=== PATIENT | female | born 1995 | race Caucasian/White ===

== ENCOUNTER 2018-11-25 10:40 | Outpatient (CLI) | payer BC ==
--- NOTE | 2018-11-25 11:14 | Non Stress Test Report ---
Non Stress Test Datetime Report Generated by CPN: 11/25/2018 11:13 DEMOGRAPHIC EGA NST: 38.4 INDICATION Indication for Study: Ordered by Provider Indication for Study (NST) Other: nst small for dates VITAL SIGNS Temperature - NST: 98.3 Pulse - NST: 102 RESP - NST: 14 NBPSYS NST: 110 NBPDIA NST: 68 MONITORING Monitor Explained: Monitor Explained; Test Explained; Patient Verbalized Understanding Time on Monitor: 11/25/2018 10:49 Time off Monitor: 11/25/2018 11:12 NST Duration: 23 NST INTERVENTIONS NST Interventions: PO Hydration; Reposition Patient Physician Notified NST: K Mo CNM BABY A: [id number] BABY A Movement : Present Contraction Frequency : irr FHR Baseline : 130 Accelerations : 15X15 Decelerations : None Variability : Moderate 6-25bpm NST Review: Meets Criteria for Reactive NST NST Review and Verified By : Autumn Goodwin RNC NST Results: Reactive NST REPORT Report Trigger: Send Report
== END 2018-11-25 11:19 | disposition home or self-care (01) ==
LOC: LC 10:40
PROVIDERS: ATTEND Obstetrics & Gynecology Gynecology
PROC: 4A1HXCZ Monitoring of Products of Conception, Cardiac Rate, External Approach (ICD-10-PCS; principal; 2018-11-25)
DX: O36.5930 Maternal care for other known or suspected poor fetal growth, third trimester, not applicable or unspecified (principal); Z3A.38 38 weeks gestation of pregnancy
CPT/HCPCS: 59025

== ENCOUNTER 2018-12-02 02:03 | Inpatient (IN) | payer BC ==
[2018-12-02] MEDS ORDERED: DINOPROSTONE 10 MG VAGINAL INSERT.SR ONE (03:04)
[2018-12-02] MEDS ORDERED: DINOPROSTONE 10 MG VAGINAL INSERT.SR PV PRN (03:12)
[2018-12-02] MEDS ORDERED: RINGERS SOLUTION,LACTATED 1,000 ML IV PRN (03:12)
[2018-12-02] MEDS ORDERED: OXYTOCIN/NORMAL SALINE 20 UNIT/1,000 ML RTUINJ IV PRN ×2 (03:12→19:42)
[2018-12-02] MEDS ORDERED: RINGERS SOLUTION,LACTATED 300 ML IV ONE (03:12)
--- NOTE | 2018-12-02 03:42 | Admission Physical ---
Datetime Report Generated by CPN: 12/02/2018 03:41 CURRENT ADMISSION Chief Complaint: Scheduled Induction of Labor Indication for Induction: IUGR Admit Impression : Term, Intrauterine ; No Active Labor; Intact Membranes; Induction of Labor Admit Plan: Admit to Unit; Initiate Labor Induction Protocol ALLERGIES Medication Allergies: No Medication Allergies: No Known Allergies (12/02/2018) Latex: No Latex Allergies OBSTETRICAL HISTORY EDC: 12/05/2018 00:00 : 1 Para: 0 Gestational Diabetes: No Rh Sensitization: No Incompetent Cervix: No DEB: No Infertility: No ART Treatment: No Uterine Anomaly: No IUGR: No Hx Previous C/S: No Macrosomia: No Hx Loss/Stillborn: No PIH: No Hx : No Placenta Previa/Abruption: No Depression/PP Depression: No PTL/PROM: No Post Hemorrhage: No Current Procedures: Ultrasound; NST Obstetrical History Comments: G1- current, IUGR less than 11% SEE RECORDS Alcohol: No Marijuana : No Cocaine: No Other Illicit Drugs: No Cigarettes: Never Smoker. 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 Heart Disease: No Hosp/Surgery: No Autoimmune Disorder: No Anesthetic Complications: No Kidney Disease: No Abnormal Pap Smear: No Neuro/Epilepsy: No Psychiatric Disorders: No Other Medical Diseases: No Hepatitis/Liver Disease: No Significant Family History: No Varicosities/Phlebitis: No Trauma/Violence : No Thyroid Dysfunction: No INFECTIOUS HISTORY Gonorrhea: No Genital Herpes: No Chlamydia: No Tuberculosis: No Syphilis: No Hepatitis: No HIV/AIDS Exposure: No Rash or Viral Illness: No HPV: No PHYSICAL EXAM General: Normal HEENT: Normal Neurologic: Normal Thyroid: Deferred Heart: Normal Lungs: Normal Breast: Deferred Back: Normal Abdomen: Normal Genitourinary Exam: Normal Extremities: Normal DTRs: Normal Pelvic Type: Adequate Vital Signs: Reviewed VAGINAL EXAM Dilatation: 1 Effacement: 25 Station: -3 Contraction Comments: irreg MEMBRANES Membranes: Intact FETUS A EGA: 39.4 Monitoring: External US FHR- Baseline: 135 Variability: Moderate 6-25bpm Accelerations: 15X15 Decelerations: None FHR Category: Category I Estimated Weight (gm): 2813 Presentation: Vertex Admit Comment: 23yo at 39+4ega presents for IOL due to borderline IUGR with EFW decreasing from 18% to 11% from 11/01 to 11/25. Reviewed borderline IUGR with normal S/D ratio and recommendation for delivery b/w 39-40wks with pt at 11/[address] Urena reviewed with her on Labor and delivery same day.GBS negative. IOL with cervidil tonight. Sickel cell trait - Heterozygous. o/w uncomplicated. Anticipate . PLANS FOR LABOR AND DELIVERY Labor and Delivery: Plan Pain Management: Epidural Feeding Preference: Breast Benefit of Breast Feed Discussed: Yes Circumcision: N/A INFORMED CONSENT Informed Consent Obtained: Vaginal Delivery; Induction of Labor; Risks, Benefits and Alternatives Discussed Signature: with User ID: [email or web address]
[2018-12-02 03:48] LABS: ABSOLUTE EOSINOPHILS # (AUTO) 0.1 10^3/uL (0.0-0.6); ABSOLUTE LYMPHOCYTES (AUTO) 2.7 10^3/uL (0.5-4.7); ABSOLUTE MONOCYTES (AUTO) 1.2 10^3/uL (0.1-1.4); ABSOLUTE NEUT (AUTO) 7.4 10^3/uL (1.7-8.2); BASOPHILS % (AUTO) 0.3 % (0-2); EOSINOPHILS % (AUTO) 0.7 % (0-6); HEMATOCRIT 35.2 % (36.0-47.0); HEMOGLOBIN 11.8 g/dL (12.0-15.5); LYMPHOCYTES % (AUTO) 23.6 % (13-45); MEAN CORPUSCULAR HGB CONC 33.4 g/dL (32.0-36.0); MEAN CORPUSCULAR VOLUME 90 fl (80-97); MONOCYTES % (AUTO) 10.8 % (3-13); PLATELET COUNT 247 10^3/uL (150-450); RED BLOOD COUNT 3.92 10^6/uL (3.72-5.28); RED CELL DISTRIBUTION WIDTH 14.3 % (11.5-14.0); SEGMENTED NEUTROPHILS % (AUTO) 64.6 % (42-78); TOTAL CELLS COUNTED % (AUTO) 100 %; WHITE BLOOD COUNT 11.5 10^3/uL (4.0-10.5)
[2018-12-02 04:03] LABS: APPEARANCE,URINE CLEAR; BILIRUBIN,URINE NEGATIVE (NEGATIVE); COLOR,URINE YELLOW; GLUCOSE, URINE NEGATIVE (NEGATIVE); KETONES,URINE NEGATIVE (NEGATIVE); LEUKOCYTE ESTERASE,URINE NEGATIVE (NEGATIVE); NITRITE,URINE NEGATIVE (NEGATIVE); PROTEIN,URINE NEGATIVE (NEGATIVE); URINE SPECIFIC GRAVITY 1.006; UROBILINOGEN,URINE NEGATIVE mg/dL (<2.0)
[2018-12-02 04:18] LABS: URINE AMPHETAMINES SCREEN NEGATIVE; URINE BARBITURATES SCREEN NEGATIVE; URINE BENZODIAZEPINES SCREEN NEGATIVE; URINE COCAINE SCREEN NEGATIVE; URINE MARIJUANA (THC) SCREEN NEGATIVE; URINE METHADONE SCREEN NEGATIVE; URINE PHENCYCLIDINE SCREEN NEGATIVE
[2018-12-02] MEDS ORDERED: EPHEDRINE SULFATE INJ 50 MG/1 ML AMPULE ONE (14:47)
[2018-12-02] MEDS ORDERED: BUPIVACAINE HCL 0.25 % INJ/PF (2.5 MG/1 ML) 30 ML VIAL ONE (14:48)
[2018-12-02] MEDS ORDERED: FENTANYL/BUPIVACAINE/NS/PF 300 MCG/150 ML RTUINJ EPI ONE (14:48)
[2018-12-02] MEDS ORDERED: MISOPROSTOL 0.2 MG TABLET ONE ×2 (18:54→21:51)
[2018-12-02] MEDS ORDERED: OXYTOCIN 10 UNIT/ML VIAL ONE ×2 (18:54→21:51)
[2018-12-02] MEDS ORDERED: OXYTOCIN/NORMAL SALINE 20 UNIT/1,000 ML RTUINJ ONE ×3 (18:54→21:51)
[2018-12-02] MEDS ORDERED: LIDOCAINE 1% INJ-PF (10 MG/ML) 30 ML SDV ONE ×2 (18:54→21:51)
[2018-12-02] MEDS ORDERED: ZOLPIDEM TARTRATE 5 MG TABLET PO PRN (19:42)
[2018-12-02] MEDS ORDERED: ACETAMINOPHEN WITH CODEINE #3 TABLET PO PRN ×2 (19:42)
[2018-12-02] MEDS ORDERED: DIPH/PERTUSS(ACELL)/TETANUS VAC/PF 0.5 ML SYR (>=10YO) IM PRN (19:42)
[2018-12-02] MEDS ORDERED: DIBUCAINE 1% OINTMENT 56 GM TP PRN (19:42)
[2018-12-02] MEDS ORDERED: BENZOCAINE/MENTHOL AEROSOL SPRAY 56 ML TOP PRN (19:42)
--- NOTE | 2018-12-02 19:54 | Warning Signs in Babies ---
VOD Warning Signs Datetime Report Generated by [facility]: 12/02/2018 19:53 VOD#[id number] -Warning Signs in Babies: Needs to be viewed. (11/25/2018 10:39:Jessica Emanuel RN)
--- NOTE | 2018-12-02 20:55 | Delivery Summary ---
Del Sum A-C Datetime Report Generated by CPN: 12/02/2018 20:55 DELIVERY PERSONNEL DELIVERY PERSONNEL: [id number] Delivery Doctor:: Yarely Whitlock MD Labor and Delivery Nurse:: DAVID Pritchard Labor and Delivery Nurse:: Jessica Emanuel RN Enterprise Manager/COMPUTING CONSULTANT: Sheila Ross, ST MATERNAL INFORMATION Delivery Anesthesia: Epidural Medications After Delivery: Pitocin Bolus-Please Comment; Pitocin Drip 20 Units/1000ml NSS; Cytotec 1000mcg Per Rectum/Vagina Meds After Delivery Comment: 20 units/1000ml NS Estimated Blood Loss (ml): 300 Maternal Complications: None Complication Details: IUGR Provider Comments: of a viable female at 1924 w/an DILCIA presentation; APGARS 9, 9; 1st degree midline vag lac LABOR SUMMARY EDC: 12/05/2018 00:00 No. Babies in Womb: 1 Attempted: No Labor Anesthesia: Epidural LABOR INFORMATION Reason for Induction: Intrauterine Growth Retardation Onset of Labor: 12/02/2018 14:02 Complete Dilatation: 12/02/2018 18:50 Cervical Ripening Agents: Cervidil Oxytocin: N/A Group B Beta Strep: neg Antibiotics # of Doses: n/a Antibiotics Time of Last Dose: n/a Name of Antibiotic Given: n/a Steroids Given: None Reason Steroids Not Administered: Not Applicable MEMBRANES Membranes Rupture Method: Spontaneous Rupture of Membranes: 12/02/2018 14:02 Length of Rupture (hr): 5.37 Amniotic Fluid Color: Clear Amniotic Fluid Amount: Small Amniotic Fluid Odor: None STAGES OF LABOR Stage 1 hr: 4 Stage 1 min: 48 Stage 2 hr: 0 Stage 2 min: 34 Stage 3 hr: 0 Stage 3 min: 5 Total Time in Labor hr: 5 Total Time in Labor min: 27 VAGINAL DELIVERY Episiotomy: None Laceration #1: Vaginal Laceration Extension #1: First Degree Laceration Repair: Yes Laceration Repair Note: Repaired w/3-0 Chromic Sponge Count Correct: Yes Sharps Count Correct: Yes BABY A INFORMATION Delivery Date/Time: 12/02/2018 19:24 Method of Delivery: Vaginal Born in Route : No : N/A Forceps: N/A Vacuum Extraction: N/A Shoulder Dystocia : No PRESENTATION/POSITION BABY A Presentation: Breech Cephalic Presentation: Vertex Vertex Position: Left Occipital Anterior Breech Presentation: N/A PLACENTA INFORMATION BABY A Placenta Delivery Time : 12/02/2018 19:29 Placenta Method of Delivery: Spontaneous Placenta Status: Delivered SCORES BABY A Heart Rate 1 min: >100 bpm Resp Effort 1 min: Good Cry Reflex Irritability 1 min: Cough or Sneeze or Pulls Away Muscle Tone 1 min: Active Motion Color 1 min: Body Day, Extremities Blue Resuscitation Effort 1 min: Tactile Stimulation SCORE 1 MIN: 9 Heart Rate 5 min: >100 bpm Resp Effort 5 min: Good Cry Reflex Irritability 5 min: Cough or Sneeze or Pulls Away Muscle Tone 5 min: Active Motion Color 5 min: Body Day, Extremities Blue Resuscitation Effort 5 min: N/A SCORE 5 MIN: 9 INFANT INFORMATION BABY A Gestational Age at Delivery: 39.4 Gestational Status: Full Term- 39- 40.6 Weeks Outcome : Liveborn Infant Condition : Stable Infant Sex: Female IDENTIFICATION BABY A Infant Verification Date/Time: 12/02/2018 19:53 ID Band Number: [id number] Mother's Name Verified: Yes RN Verifying Infant: ZACHARY Plummer Additional Verifying Personnel: NGordo Austin, RN WEIGHT/LENGTH BABY A Birthweight (gm): 2856 Infant Weight (lb): 6 Infant Weight (oz): 5 Length (in): 19.75 Infant Length (cm): 50.17 CORD INFORMATION BABY A No. Cord Vessels: 3 Nuchal Cord : N/A Cord Blood Taken: Yes-For Storage (Mom's Blood type +) ASSESSMENT BABY A Skin to Skin: Yes BABY B INFORMATION : N/A SIGNATURES Signature: with User ID: [email or web address]
[2018-12-02] MEDS: IBUPROFEN 800 MG TABLET PO SCH (22:30)
[2018-12-03] MEDS: IBUPROFEN 800 MG TABLET PO SCH ×3 (05:23→21:28)
[2018-12-03] MEDS: DOCUSATE SODIUM 100 MG CAPSULE PO SCH ×2 (10:01→17:54)
[2018-12-03] MEDS: PRENATAL VITAMIN W DHA CAPSULE PO SCH (10:01)
[2018-12-03] MEDS: SENNOSIDES/DOCUSATE 8.6-50 MG 1 EACH TABLET PO SCH (10:01)
[2018-12-03] MEDS: FERROUS SULFATE 325 MG TABLET PO SCH ×2 (10:02→17:54)
[2018-12-03 10:37] LABS: HEMATOCRIT 35.2 % (36.0-47.0); MEAN CORPUSCULAR HEMOGLOBIN 30.6 pg (27.0-33.4); MEAN CORPUSCULAR VOLUME 90 fl (80-97); PLATELET COUNT 221 10^3/uL (150-450); RED CELL DISTRIBUTION WIDTH 14.4 % (11.5-14.0); WHITE BLOOD COUNT 18.1 10^3/uL (4.0-10.5)
--- NOTE | 2018-12-03 11:15 | PDOC PROGRESS REPORT ---
Subjective-OB Progress Note for:: 12/03/18 Subjective: Doing well, no c/o, Physical Exam (OB) Vital Signs: Temp Pulse Resp BP Pulse Ox 97.4 F 74 18 103/60 96 12/03/18 08:00 12/03/18 08:00 12/03/18 08:00 12/03/18 08:00 12/03/18 08:00 Intake & Output 12/02/18 12/03/18 12/04/18 06:59 06:59 06:59 Weight 66.7 kg - Lochia Lochia Amount: Small 10-25 ml Lochia Color: Rubra/Red - Abdomen Description: Soft, Round Hernia Present: No Fundal Description: Firm, Midline Fundal Height: 3/u - 4/u Objective-Diagnostic Laboratory: 12/03/18 09:38 12/03/18 09:38 WBC 18.1 H RBC 3.90 Hgb 12.0 Hct 35.2 L MCV 90 MCH 30.6 MCHC 34.0 RDW 14.4 H Plt Count 221 Assessment and Plan(PN) - Assessment and Plan (1) Vaginal delivery Is this a current diagnosis for this admission?: Yes (2) Intrauterine growth restriction affecting antepartum care of mother in third trimester Qualifiers: Fetus number: single or unspecified fetus Qualified Code(s): O36.5930 - Maternal care for other known or suspected poor growth, third trimester, not applicable or unspecified Is this a current diagnosis for this admission?: Yes - Time Spent with Patient Time with patient: Less than 15 minutes Medications reviewed and adjusted accordingly: Yes - Disposition Anticipated Discharge: Home Within: within 24 hours
--- NOTE | 2018-12-03 11:18 | PDOC DISCHARGE SUMMARY ---
Final Diagnosis Discharge Date: 12/04/18 - Final Diagnosis (1) Vaginal delivery Is this a current diagnosis for this admission?: Yes (2) Intrauterine growth restriction affecting antepartum care of mother in third trimester Is this a current diagnosis for this admission?: Yes Discharge Data - Discharge Medication Home Medications: No122/Iron/Folic Acid [ Multi Tablet] 1 tab PO DAILY 11/25/18 Gestational Age: 39.4 Reason(s) for Admission: Induction of Labor, Other Admission Note: IUGR Procedures: NST, Ultrasound Intrapartum Procedure(s): Spontaneous Vaginal Delivery Complication(s): Laceration-Vaginal Laceration-Degree: 1st - Blair Data Baby 1 Female at 1 minute: 9 at 5 minutes: 9 Weight: 2.863 kg Home with Mother: Yes Complications: No - Diagnosis Test Laboratory: Temp Pulse Resp BP Pulse Ox 97.4 F 74 18 103/60 96 12/03/18 08:00 12/03/18 08:00 12/03/18 08:00 12/03/18 08:00 12/03/18 08:00 12/02/18 12/02/18 12/03/18 02:14 03:33 09:38 RBC 3.92 3.90 Hgb 11.8 L 12.0 Hct 35.2 L 35.2 L Urine Opiates Screen NEGATIVE - Discharge information/Instructions Discharge Activity: Activity As Tolerated, No Lifting Over 10 Pounds, No Lifting/Push/Pulling, Pelvic Rest Discharge Diet: As Tolerated, Regular Disposition: HOME, SELF-CARE Follow up with: [facility] in: 4, Weeks
[2018-12-04] MEDS: IBUPROFEN 800 MG TABLET PO SCH (06:02)
--- NOTE | 2018-12-04 09:23 | PDOC PROGRESS REPORT ---
Subjective-OB Progress Note for:: 12/04/18 Subjective: Doing well, ready to go home, Physical Exam (OB) Vital Signs: Temp Pulse Resp BP Pulse Ox 97.8 F 65 16 97/53 L 99 12/04/18 08:14 12/04/18 08:14 12/04/18 08:14 12/04/18 08:14 12/04/18 08:14 Intake & Output 12/03/18 12/04/18 12/05/18 06:59 06:59 06:59 Baby 1 Female 2.863 kg - PIH/Pre-Eclampsia DTR's: 2 + Clonus: Negative Headache: Absent Epigastric Pain: No Visual Changes: No - Lochia Lochia Amount: Scant < 10 ml Lochia Color: Rubra/Red - Abdomen Description: Soft Hernia Present: No Fundal Description: Firm, Midline Fundal Height: u/3 - u/4 Objective-Diagnostic Laboratory: 12/03/18 09:38 12/03/18 09:38 WBC 18.1 H RBC 3.90 Hgb 12.0 Hct 35.2 L MCV 90 MCH 30.6 MCHC 34.0 RDW 14.4 H Plt Count 221 Assessment and Plan(PN) - Assessment and Plan (1) Vaginal delivery Is this a current diagnosis for this admission?: Yes (2) Intrauterine growth restriction affecting antepartum care of mother in third trimester Qualifiers: Fetus number: single or unspecified fetus Qualified Code(s): O36.5930 - Maternal care for other known or suspected poor growth, third trimester, not applicable or unspecified Is this a current diagnosis for this admission?: Yes - Time Spent with Patient Medications reviewed and adjusted accordingly: Yes - Disposition Anticipated Discharge: Home Within: within 24 hours
[2018-12-04] MEDS: PRENATAL VITAMIN W DHA CAPSULE PO SCH (09:56)
[2018-12-04] MEDS: FERROUS SULFATE 325 MG TABLET PO SCH (09:57)
[2018-12-04] MEDS: DOCUSATE SODIUM 100 MG CAPSULE PO SCH (09:57)
[2018-12-04] MEDS: SENNOSIDES/DOCUSATE 8.6-50 MG 1 EACH TABLET PO SCH (09:57)
[2018-12-04 09:58] VITALS: BP 103/60
== END 2018-12-04 12:23 | disposition home or self-care (01) | DRG 807 ==
LOC: LR 02:03 → 2S 21:42
PROVIDERS: ADMIT Student in an Organized Health Care Education/Training Program; ATTEND Obstetrics & Gynecology
PROC: 10E0XZZ Delivery of Products of Conception, External Approach (ICD-10-PCS; principal; 2018-12-02)
PROC: 0HQ9XZZ Repair Perineum Skin, External Approach (ICD-10-PCS; 2018-12-02)
DX: O36.5930 Maternal care for other known or suspected poor fetal growth, third trimester, not applicable or unspecified (principal); O70.0 First degree perineal laceration during delivery; Z37.0 Single live birth; Z3A.39 39 weeks gestation of pregnancy
CPT/HCPCS: 36415; 80307; 81005; 85025; 85027; 86592; 86850; 86900; 86901; J2590; J3010; J3490

== ENCOUNTER 2019-12-05 05:36 | Emergency (ER) | payer BC ==
--- NOTE | 2019-12-05 07:14 | RADIOLOGY REPORT (SQ) ---
EXAM: X-ray RIBS unilateral CLINICAL DATA: Left rib pain. TECHNICAL DATA: Two views of the left ribs were performed on 12/05/2019 at 7:15 AM. COMPARISONS: None FINDINGS: There is no evidence of fracture or other acute osseous injury. No focal lytic or sclerotic bone lesions are seen. The visualized portions of the adjacent hemithorax are normal.There is no evidence of a pneumothorax. IMPRESSION: No evidence of acute osseous injury involving the left ribs.
[2019-12-05 07:18] LABS: APPEARANCE,URINE SLIGHTLY-CLOUDY; BILIRUBIN,URINE NEGATIVE (NEGATIVE); COLOR,URINE YELLOW; GLUCOSE, URINE NEGATIVE (NEGATIVE); KETONES,URINE NEGATIVE (NEGATIVE); LEUKOCYTE ESTERASE,URINE NEGATIVE (NEGATIVE); NITRITE,URINE NEGATIVE (NEGATIVE); PROTEIN,URINE NEGATIVE (NEGATIVE); URINE SPECIFIC GRAVITY 1.012; UROBILINOGEN,URINE NEGATIVE mg/dL (<2.0)
[2019-12-05] MEDS ORDERED: KETOROLAC TROMETHAMINE INJ/PF 30 MG/1 ML SDV IV ONE (07:49)
[2019-12-05] MEDS ORDERED: NORMAL SALINE 500 ML IV ONE (07:49)
[2019-12-05 08:19] LABS: ABSOLUTE BASOPHILS # (AUTO) 0.1 10^3/uL (0.0-0.2); ABSOLUTE LYMPHOCYTES (AUTO) 1.4 10^3/uL (0.5-4.7); ABSOLUTE MONOCYTES (AUTO) 0.6 10^3/uL (0.1-1.4); ABSOLUTE NEUT (AUTO) 8.2 10^3/uL (1.7-8.2); BASOPHILS % (AUTO) 0.7 % (0-2); EOSINOPHILS % (AUTO) 0.1 % (0-6); HEMATOCRIT 38.4 % (36.0-47.0); HEMOGLOBIN 13.4 g/dL (12.0-15.5); LYMPHOCYTES % (AUTO) 13.5 % (13-45); MEAN CORPUSCULAR HEMOGLOBIN 32.1 pg (27.0-33.4); MEAN CORPUSCULAR HGB CONC 34.8 g/dL (32.0-36.0); MEAN CORPUSCULAR VOLUME 92 fl (80-97); MONOCYTES % (AUTO) 6.2 % (3-13); PLATELET COUNT 239 10^3/uL (150-450); RED BLOOD COUNT 4.17 10^6/uL (3.72-5.28); RED CELL DISTRIBUTION WIDTH 12.7 % (11.5-14.0); SEGMENTED NEUTROPHILS % (AUTO) 79.5 % (42-78); TOTAL CELLS COUNTED % (AUTO) 100 %; WHITE BLOOD COUNT 10.3 10^3/uL (4.0-10.5)
[2019-12-05 08:40] LABS: ALKALINE PHOSPHATASE 70 U/L (38-126); ANION GAP 8 (5-19); ASPARTATE AMINO TRANSFERASE 26 U/L (14-36); BILIRUBIN,TOTAL 0.6 mg/dL (0.2-1.3); BLOOD UREA NITROGEN 9 mg/dL (7-20); CALCIUM 8.7 mg/dL (8.4-10.2); CARBON DIOXIDE 24 mmol/L (22-30); CHLORIDE 105 mmol/L (98-107); GLUCOSE 107 mg/dL (75-110); POTASSIUM 3.9 mmol/L (3.6-5.0); TOTAL PROTEIN 7.2 g/dL (6.3-8.2)
--- NOTE | 2019-12-05 10:40 | RADIOLOGY REPORT (SQ) ---
EXAM DESCRIPTION: CTA CHEST IMAGES COMPLETED DATE/TIME: 12/05/2019 10:25 am REASON FOR STUDY: Pleuritic chest pain left side, elevated D dimer COMPARISON: None. TECHNIQUE: CT scan of the chest performed using helical scanning technique with dynamic intravenous contrast injection. Images reviewed with lung, soft tissue and bone windows. Reconstructed coronal and sagittal MPR images reviewed. Additional 3 dimensional post-processing performed to develop Maximal Intensity Projection images (IN P). All images stored on PACS. All CT scanners at this facility use dose modulation, iterative reconstruction, and/or weight based d osing when appropriate to reduce radiation dose to as low as reasonably achievable (ALARA). [facility]: Dose Right [facility]: CareDose [facility]: Dose Right [facility]: Teradose 4D [facility]: Azooo CONTRAST TYPE AND DOSE: Contrast/concentration: Isovue 350.00 mg/ml; Total Contrast Delivered: 49.0 ml; Total Saline Delivered: 70.0 ml Contrast bolus optimized for the pulmonary arteries. RENAL FUNCTION: GFR > 60. RADIATION DOSE: CT Rad equipment meets quality standard of care and radiation dose reduction techniq ues were employed. CTDIvol: 3.3 - 14.3 mGy. DLP: 516 mGy-cm. LIMITATIONS: None. FINDINGS: LUNGS AND PLEURA: The trachea main bronchi are patent. There is no consolidation, ground- glass opacification, pleural effusion or pneumothorax. AORTA AND GREAT VESSELS: Evaluation of the thoracic aorta is limited as the contrast bolus was optimi zed for evaluation of the pulmonary arteries. There is a variant 2 vessel arch with a common origin of the brachiocephalic and left common carotid arteries. There is no thoracic aortic dissection or a neurysm. HEART: No cardiomegaly or pericardial effusion. PULMONARY ARTERIES: No emboli. HILAR AND MEDIASTINAL STRUCTURES: No adenopathy or mass. HARDWARE: None in the chest. UPPER ABDOMEN: Variant direct origin of the left gastric artery from the aorta. THYROID AND OTHER SOFT TISSUES: No adenopathy or mass. BONES: No acute fracture. 3D MIPS: Confirm above findings. OTHER: No other finding. IMPRESSION: No acute cardiopulmonary process. COMMENT: Quality ID # [id number]: Final reports with documentation of one or more dose reduction techniques (e.g., Automated exposure control, adjustment of the mA and/or kV according to patient size, use of iterative reconstruction technique) TECHNICAL DOCUMENTATION: JOB ID: [id number] 2010 [employer]- All Rights Reserved Reading location - IP/workstation name: [email or web address]
--- NOTE | 2019-12-05 11:05 | ER Document Report ---
Entered by CHAPARRO RANKIN SCRIBE 12/05/19 0644 Acting as scribe for:NADYA DAVIS MD ED General - General Chief Complaint: Flank Pain Stated Complaint: LEFT FLANK PAIN Time Seen by Provider: 12/05/19 06:22 Primary Care Provider: MARLINE FOX MD [Primary Care Provider] - Follow up as needed Information source: Patient Notes: This 24-year-old female presents to the emergency department complaining of left-sided chest wall pain that began two days ago. Patient describes the pain as "jolting" and sharp. Patient states that the pain is worsened to move, turn, lay down and with deep breaths. Patient explains that two days ago, she was hanging decorations and balloons for her child's first birthday. Patient denies injury, shortness of breath, cough, nausea, diarrhea and vomiting. TRAVEL OUTSIDE OF THE [place] IN LAST 30 DAYS: No - Related Data Allergies/Adverse Reactions: No Known Allergies Allergy (Verified 12/02/18 02:47) Past Medical History - General Information source: Patient - Social History Smoking Status: Never Smoker Cigarette use (# per day): No Chew tobacco use (# tins/day): No Frequency of alcohol use: None Drug Abuse: None Lives with: Family Family History: Reviewed & Not Pertinent Patient has homicidal ideation: No - Medical History Medical History: Negative Surgical Hx: Negative Review of Systems - Review of Systems Constitutional: No symptoms reported EENT: No symptoms reported Cardiovascular: No symptoms reported Respiratory: See HPI. denies: Cough, Short of breath Gastrointestinal: See HPI. denies: Diarrhea, Nausea, Vomiting Genitourinary: See HPI, Flank pain Female Genitourinary: See HPI, Last menstrual period. denies: Musculoskeletal: No symptoms reported Skin: No symptoms reported Hematologic/Lymphatic: No symptoms reported Neurological/Psychological: No symptoms reported -: Yes All other systems reviewed and negative Physical Exam - Vital signs Vitals: Temp 98.7 F 12/05/19 06:03 - Notes Notes: Physical Exam: General: Alert, appears well. HEENT: Normocephalic. Atraumatic. PERRL. Extraocular movements intact. Oropharynx clear. Neck: Supple. Non-tender. Respiratory: No respiratory distress. Diminished breath sounds. Anterior lateral axillary to lower rib cage tenderness to palpation. No crepitus, swelling or bruising. Cardiovascular: Regular rate and rhythm. Abdominal: Normal Inspection. Non-tender. No distension. Normal Bowel Sounds. Back: No gross abnormalities. No left CVA tenderness to percussion. Extremities: Moves all four extremities. Upper extremities: Normal inspection. Normal ROM. Lower extremities: Normal inspection. No edema. Normal ROM. Neurological: Normal cognition. AAOx4. Normal speech. Psychological: Normal affect. Normal Mood. Skin: Warm. Dry. Normal color. Course - Re-evaluation Re-evalutation: 12/05/19 10:59 Left-sided chest wall pain improved after treatment with IV ketorolac. - Vital Signs Vital signs: Temp Pulse Resp BP Pulse Ox 99 F 78 16 100/59 L 99 12/05/19 09:36 12/05/19 09:36 12/05/19 09:36 12/05/19 09:36 12/05/19 09:36 - Laboratory Result Diagrams: 12/05/19 08:12 12/05/19 08:12 Laboratory results interpreted by me: 12/05/19 12/05/19 12/05/19 06:59 08:12 08:12 Seg Neutrophils % 79.5 H D-Dimer 1.18 H Sodium Urine Blood SMALL H 12/05/19 08:12 Seg Neutrophils % D-Dimer Sodium 136.9 L Urine Blood - Diagnostic Test Radiology reviewed: Image reviewed, Reports reviewed Radiology results interpreted by me: 12/05/19 11:00 Chest x-ray with left rib detail no acute process, and no rib fractures found CT angiogram of chest shows no acute cardiopulmonary process no pulmonary emboli. Discharge - Discharge Clinical Impression: Left-sided chest wall pain Condition: Stable Disposition: HOME, SELF-CARE Instructions: Chest Wall Pain ([facility]) Prescriptions: Ibuprofen [Ibu] 600 mg PO TID PRN 7 Days #21 tablet PRN Reason: pain/fever/swelling Referrals: MARLINE FOX MD [Primary Care Provider] - Follow up as needed I personally performed the services described in the documentation, reviewed and edited the documentation which was dictated to the scribe in my presence, and it accurately records my words and actions.
[2019-12-05 11:45] VITALS: BP 106/54
== END 2019-12-05 11:45 | disposition home or self-care (01) ==
LOC: ER 05:36
DX: R07.89 Other chest pain (principal); R10.9 Unspecified abdominal pain
CPT/HCPCS: 99284; 96361; 96374; 36415; 85025; 81025; 80053; 81001; 85379; 71100; 71275; J1885; J7040